=== PATIENT | male | born 1995 | race Caucasian/White ===

== ENCOUNTER → 2019-07-04 11:51 | Outpatient (BNVA) | payer OTHER, SELFPAY | PROVIDERS: Visit Provider Nurse Practitioner | DX: M25.571 Pain in right ankle and joints of right foot (principal); Z98.890 Other specified postprocedural states | CPT/HCPCS: 73610 ==

== ENCOUNTER 2019-07-05 07:21 | Emergency (ER) | payer OTHER, SELFPAY ==
[2019-07-05 07:25] VITALS: BP 139/90; PULSE 59; RESP 20; TEMP 36.4; O2SAT 100; BMI 21.6
--- NOTE | 2019-07-05 07:36 | W.ED.GENADLT ---
Documented by User: PALOMO Rehman 07/05/19 10:46 HPI - General Adult General: Chief complaint: General Medical Stated complaint: nausea, vomiting Time Seen by Provider: 07/05/19 07:29 History of Present Illness: HPI narrative: Patient is a 24-year-old male comes to the ED nausea and vomiting. Nausea and vomiting started on Monday. He only feels nauseous and vomits after he eats. Between meals he feels fine. He states he is able to keep fluids down and drinks plenty of water. Patient did state he is under some stress recently and thinks that it could possibly be causing the symptoms. He's recently his grandpa and his girlfriend of 2 years broke up with him. He says this is caused him a lot of distress. Patient was seen in urgent care yesterday for ankle injury. He currently has no acute ankle complaints while here in the ED. Denies any Fever, chills,nasal congestion, sore throat, cough, chest pain, shortness of breath, abdominal pain, diarrhea, constipation, dysuria, hematuria, reviewed changes, numbness or tingling to extremities. Review of Systems General: Reports: 10 or more systems reviewed and unremarkable except in HPI and below PFSH ED PFSH: Social History Smoking and tobacco status: never smoked Physical Exam Narrative: EXAM NARRATIVE: Patient is a 24-year-old male who is sitting comfortably on exam bed when I entered the room. He is showing no signs of acute pain or distress. Patient is also showing no signs of acute respiratory distress. Const: COMMON NORMALS: oriented x3 HENMT: COMMON NORMALS: normocephalic HEAD & SCALP: normocephalic MOUTH: oral and palatal mucosa normal THROAT: posterior oropharynx normal and uvula midline Neck/C-Spine: COMMON NORMALS: supple GENERAL: Yes normal visual inspection Resp: COMMON NORMALS: normal respiratory effort, no retractions, no use of accessory muscles and clear to auscultation bilaterally AUSCULTATION: clear to auscultation bilaterally Cardio: COMMON NORMALS: regular rate, regular rhythm, S1 normal heart sound, S2 normal heart sound, no gallops, no clicks, no murmurs and peripheral pulses 2+ throughout RATE: regular rate RHYTHM: regular rhythm HEART SOUNDS: S1 normal and S2 normal PERIPHERAL PULSES: pulses 2+ throughout GI: COMMON NORMALS: normal to inspection, nondistended, normoactive bowel sounds, soft to palpation, non-tender and no masses PALPATION: Yes soft : COMMON NORMALS: Yes no CVA tenderness BLADDER/KIDNEY EXAM: Yes no CVA tenderness Back/Pelvis: COMMON NORMALS: no CVA tenderness Extremity: COMMON NORMALS: normal to inspection Neuro: COMMON NORMALS: oriented x3 and moves all extremities Skin: COMMON NORMALS: no rashes or lesions noted GENERAL SKIN EXAM: no rashes or lesions noted Course ED course: Patient has not vomited while here in the ED and has been able to drink water. Patient was given Zofran while here in the ED and then crackers and peanut butter. Patient states that he doesn't feel nauseous and did not vomit after eating peanut Butter and crackers. Vital Signs: Vital signs: Vital Signs Temperature 97.5 F L 07/05/19 07:25 Pulse Rate 59 L 07/05/19 07:25 Respiratory Rate 20 H 07/05/19 07:25 Blood Pressure 139/90 07/05/19 07:25 Pulse Oximetry 100 07/05/19 07:25 MDM - General Adult Lab Data: Attestation: I reviewed the patient's lab results. Labs: Lab Results 07/05/19 Range/Units 08:37 POC Glucose 88 (70-110) mg/dL Discharge Plan Discharge Patient Disposition: Home, Self-Care Clinical Impression: Nausea & vomiting Qualifiers: Vomiting type: unspecified Vomiting Intractability: non-intractable Qualified Code(s): R11.2 - Nausea with vomiting, unspecified Condition: Stable Prescriptions: New Zofran 4 mg tablet 4 mg PO DAILY PRN (Reason: nausea and vomiting) Qty: 10 RF: 0 No Action No Known Home Medications RF: 0 Discharge Orders: Discharge Order (Routine); Ordered 07/05/19 Ordered By: Shaan Tanner Discharge Diet: Regular Discharge Activity: Resume usual activity Patient Instructions: Acute Nausea and Vomiting (ED) Activity Restrictions/Additional Instructions: Follow-up with your PCP in 7 days for reevaluation. Take Zofran as prescribed to help with nausea and vomiting. Drink plenty of fluids to stay hydrated. Return to the ED for reevaluation if your symptoms worsen or you develop a fever. 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 Vital Signs: Vital signs: Vital Signs Temperature 97.5 F L 07/05/19 07:25 Pulse Rate 59 L 07/05/19 07:25 Respiratory Rate 20 H 07/05/19 07:25 Blood Pressure 139/90 07/05/19 07:25 Pulse Oximetry 100 07/05/19 07:25 MDM - General Adult Lab Data: Labs: Lab Results 07/05/19 Range/Units 08:37 POC Glucose 88 (70-110) mg/dL Discharge Plan Discharge Patient Disposition: Home, Self-Care Clinical Impression: Nausea & vomiting Qualifiers: Vomiting type: unspecified Vomiting Intractability: non-intractable Qualified Code(s): R11.2 - Nausea with vomiting, unspecified Condition: Stable Prescriptions: New Zofran 4 mg tablet 4 mg PO DAILY PRN (Reason: nausea and vomiting) Qty: 10 RF: 0 No Action No Known Home Medications RF: 0 Discharge Orders: Discharge Order (Routine); Ordered 07/05/19 Ordered By: Shaan Tanner Discharge Diet: Regular Discharge Activity: Resume usual activity Patient Instructions: Acute Nausea and Vomiting (ED) Activity Restrictions/Additional Instructions: Follow-up with your PCP in 7 days for reevaluation. Take Zofran as prescribed to help with nausea and vomiting. Drink plenty of fluids to stay hydrated. Return to the ED for reevaluation if your symptoms worsen or you develop a fever. 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
[2019-07-05] MEDS: ondansetron 4 MG Tablet PO (08:32)
[2019-07-05 08:40] LABS: Glucose Point of Care 88 mg/dL (70-110)
== END 2019-07-05 10:24 | disposition home or self-care (01) ==
PROVIDERS: Emergency Provider Physician Assistant
DX: R11.2 Nausea with vomiting, unspecified (principal)
CPT/HCPCS: 36416; 82962; 99281; 99283; Q0162

== ENCOUNTER 2019-07-08 14:16 | Outpatient (CLI) | payer OTHER, SELFPAY ==
--- NOTE | 2019-07-08 14:22 | XR_ITS ---
WS: [id number] ABDOMEN SERIES ACUTE Supine and upright views of the abdomen with AP or PA chest CLINICAL INFORMATION: vomiting x 10 days COMPARISON: None. FINDINGS: Heart: Normal cardiac silhouette. Lungs: Lungs are clear. No consolidation or pleural fluid. Bowel gas pattern: Normal. Free air: None. Abnormal calcifications: None. Bones: Normal. XR/XR acute abdomen series [id number] IMPRESSION: 1. Normal chest. 2. Normal bowel gas pattern..
== END 2019-07-08 14:17 | disposition home or self-care (01) ==
LOC: RADWPI 14:18
PROVIDERS: PCP Family Medicine; Visit Provider Family Medicine
DX: R11.10 Vomiting, unspecified (principal)
CPT/HCPCS: 74022

== ENCOUNTER 2021-04-27 18:59 | Outpatient (CLI) | payer SELFPAY ==
--- NOTE | 2021-04-27 19:12 | XRR_ITS ---
PROCEDURE INFORMATION: Exam: XR Right Foot Exam date and time: 04/27/2021 7:12 PM Age: 26 years old Clinical indication: Pain; Foot; Right; Prior surgery; Surgery date: 6+ months; Surgery type: RT ankle; Patient HX: Stepped in hole; Additional info: Pain after injury TECHNIQUE: Imaging protocol: XR Right foot. Views: 3 or more views. COMPARISON: No relevant prior studies available. FINDINGS: Bones/joints: No acute fracture. Postsurgical findings seen in the distal tibia and fibula. Soft tissues: Normal. XR/XR foot RT min 3V* [id number] IMPRESSION: No acute findings.
--- NOTE | 2021-04-27 19:12 | XRR_ITS ---
PROCEDURE INFORMATION: Exam: XR Right Ankle Exam date and time: 04/27/2021 7:12 PM Age: 26 years old Clinical indication: Pain; Right; Prior surgery; Surgery date: 6+ months; Surgery type: RT. Ankle; Patient HX: Twisted; Additional info: Pain after injury TECHNIQUE: Imaging protocol: XR Right ankle. Views: 3 or more views. COMPARISON: No relevant prior studies available. FINDINGS: Bones/joints: Normal. Soft tissues: Normal. XR/XR ankle RT min 3V* [id number] IMPRESSION: No acute findings.
== END 2021-04-27 19:00 | disposition home or self-care (01) ==
PROVIDERS: Visit Provider Family Medicine
DX: M25.571 Pain in right ankle and joints of right foot (principal)
CPT/HCPCS: 73610; 73630

== ENCOUNTER → 2021-12-28 13:19 | Outpatient (BNVA) | payer SELFPAY | PROVIDERS: Visit Provider Registered Nurse Neonatal Intensive Care | DX: Z20.822 Contact with and (suspected) exposure to COVID-19 (principal) | CPT/HCPCS: 87426 ==

== ENCOUNTER 2022-12-07 15:05 | Emergency (ER) | payer BC, SELFPAY ==
[2022-12-07 15:08] VITALS: BP 107/67; PULSE 53; RESP 16; TEMP 36.6; O2SAT 100
--- NOTE | 2022-12-07 15:31 | ED_ITS ---
HPI - Abdominal Pain General: Chief Complaint: Nausea/Vomiting/Diarrhea Stated Complaint: n/v/d, fever Time Seen by Provider: 12/07/22 15:14 History of Present Illness: Patient is a 27-year-old male comes to the ED with abdominal pain nausea/vomiting and diarrhea. Symptoms started approximately 3 days ago. He rates his abdominal pain is mild to moderate and describes it as a cramping pain is located on the left side of the abdomen. He states that he gets nauseous and vomits about 3 or 4 times a day and is usually after he eats something. He has had about 2-3 episodes of diarrhea a day. Yesterday he was vomiting and there is a little bit of red blood in it. Denies any episodes of emesis today but endorses feeling nauseous. He went and saw all the urgent care and they referred patient here to the ED for further evaluation due to bloody emesis and abdominal pain. Last night patient endorses having chills and subjective fever. Associated Symptoms: Reports chills, diarrhea, fever(s) (Subjective fever), nausea and vomiting; Denies constipation, dysuria, hematochezia and hematuria Review of Systems Const: Reports: fever(s) (Subjective fever) and chills; Denies: fatigue Eyes: Denies: change in vision or eye discomfort ENMT: Denies: throat pain, odynophagia, nasal discharge or nasal congestion Card: Denies: chest pain, palpitations, edema, swelling of feet/ankles, dyspnea on exertion or orthopnea Resp: Denies: dyspnea, productive cough or non-productive cough GI: Reports: abdominal pain, nausea, vomiting and diarrhea; Denies: constipation or hematochezia : Denies: flank pain, difficulty urinating, dysuria or hematuria Musc: Denies: neck pain, back pain or extremity swelling Skin/Breast: Denies: rash or new lesions Neuro: Denies: headache(s), numbness in extremities or weakness in extremities PFS ED PFSH: Medical History (Updated 12/07/22 @ 16:50 by PALOMO Rehman) No pertinent family history Surgical History (Updated 12/07/22 @ 15:35 by PALOMO Rehman) No pertinent past surgical history Social History Smoking and tobacco status: current every day smoker (chew) smokeless tobacco Physical Exam Const: COMMON NORMALS: no acute distress, patient oriented x3, healthy appearing and alert HENMT: COMMON NORMALS: normocephalic HEAD & SCALP: normocephalic MOUTH: Normal oral and palatal mucosa present THROAT: posterior oropharynx normal and uvula midline Neck/C-Spine: COMMON NORMALS: supple GENERAL: Yes normal visual inspection Resp: COMMON NORMALS: normal respiratory effort, No retractions, No use of accessory muscles and clear to auscultation bilaterally AUSCULTATION: clear to auscultation bilaterally Cardio: COMMON NORMALS: regular rate, regular rhythm, S1 normal heart sound present, S2 normal heart sound present, No gallops present (Cardio), No clicks present (Cardio), No murmurs present (Cardio) and Peripheral pulses 2+ t hroughout RATE: regular rate RHYTHM: regular rhythm HEART SOUNDS: S1 normal heart sound present and S2 normal heart sound present PERIPHERAL PULSES: Peripheral pulses 2+ throughout GI: COMMON NORMALS: Normal to inspection, nondistended, normoactive bowel sounds present, Soft to palpation and no masses PALPATION: Yes Soft to palpation and Yes Tenderness to palpation present (GI) Details: LLQ and LUQ : COMMON NORMALS: Yes no CVA tenderness BLADDER/KIDNEY EXAM: Yes no CVA tenderness Back/Pelvis: COMMON NORMALS: no CVA tenderness Extremity: COMMON NORMALS: normal to inspection Neuro: COMMON NORMALS: patient oriented x3 SENSORIUM/ORIENTATION: Yes alert GAIT: Yes Normal gait present Skin: GENERAL SKIN EXAM: dry skin Course Vital Signs: Vital signs: Vital Signs Temperature 97.9 F 12/07/22 15:08 Pulse Rate 53 L 12/07/22 15:08 Respiratory Rate 16 12/07/22 15:08 Blood Pressure 107/67 12/07/22 15:08 Pulse Oximetry 100 12/07/22 15:08 Oxygen Delivery Me thod Room Air 12/07/22 15:08 MDM - Abdominal Pain Medical Decision Making Patient is a 27-year-old male comes to the ED with abdominal pain nausea/vomiting and diarrhea. Symptoms started approximately 3 days ago. He rates his abdominal pain is mild to moderate and describes it as a cramping pain is located on the left side of the abdomen. He states that he gets nauseous and vomits about 3 or 4 times a day and is usually after he eats something. He has had about 2-3 episodes of diarrhea a day. Yesterday he was vomiting and there is a little bit of red blood in it. Denies any episodes of emesis today but endorses feeling nauseous. He went and saw all the urgent care and they referred patient here to the ED for further evaluation due to bloody emesis and abdominal pain. Last night patient endorses having chills and subjective fever. Vitals are stable. Patient appears nontoxic and in no acute distress or pain. Patient has some generalized left-sided abdominal tenderness. Rest of exam is benign. CBC, CMP and lipase were all unremarkable. Patient is refusing an IV. I went in and talked with patient about not having an IV limits further evaluation such as a CT of abdomen with contrast and I cannot give him IV fluids and Zofran to help with his symptoms. Patient understood and still refused the IV. Patient did take p.o. Zofran and was able to tolerate p.o. fluids after Zofran. I told patient that he is not getting a full evaluation if I cannot get IV outpatient and I will not be able to do a CT of abdomen with contrast as needed for further evaluation. Patient still refused IV. Patient aware of risk of going home AMA. Patient was signed out AMA and discharged home with a prescription for Zofran. Patient likely has viral gastroenteritis. I told him to return to the ED immediately if he is having any worsening symptoms. Patient understood and agreed with plan. Lab Data I reviewed the patient's lab results. 12/07/22 15:32 12/07/22 15:32 Labs/Radiology: Laboratory Results WBC 5.2 10^3/uL (4.0-10.0) 12/07/22 15:32 RBC 5.08 10^6/uL (4.1-5.3) 12/07/22 15:32 Hgb 15.0 g/dL (11.7-16.6) 12/07/22 15:32 Hct 46.0 % (42.0-52.0) 12/07/22 15:32 MCV 90.6 fl (80-94) 12/07/22 15: MCH 29.5 pg (28.0-34.0) 12/07/22 15:32 MCHC 32.6 g/dL (30.0-36.0) 12/07/22 15:32 RDW 11.8 % (12.1-15.1) L 12/07/22 15:32 Plt Count 230 10^3/cmm (130-400) 12/07/22 15:32 MPV 9.8 fL (7.4-10.4) 12/07/22 15:32 Neut % (Auto) 46.5 % 12/07/22 15:32 Lymph % (Auto) 40.2 % 12/07/22 15:32 [place] % (Auto) 11.0 % 12/07/22 15:32 Eos % (Auto) 1.9 % 12/07/22 15:32 Baso % (Auto) 0.2 % 12/07/22 15:32 Neut # (Auto) 2.41 10^3/uL (1.8-7.7) 12/07/22 15:32 Lymph # (Auto) 2.1 10^3/uL (0.8-4.8) 12/07/22 15:32 [place] # (Auto) 0.6 10^3/uL (0.2-0.9) 12/07/22 15:32 Eos # (Auto) 0.1 10^3/uL (0.0-0.8) 12/07/22 15:32 Baso # (Auto) 0.0 10^3/uL (0.0-0.1) 12/07/22 15:32 Nucleated RBC % (auto) 0 % 12/07/22 15:32 Nucleated RBCs # 0.0 /100WBC 12/07/22 15:32 Sodium 142 mmol/L (136-145) 12/07/22 15:32 Potassium 4.4 mmol/L (3.5-5.1) 12/07/22 15:32 Chloride 105 mmol/L (98-107) 12/07/22 15:32 Carbon Dioxide 29 mmol/L (22-29) 12/07/22 15:32 Anion Gap 12.4 (5-19) 12/07/22 15:32 BUN 11 mg/dL (6-20) 12/07/22 15:32 Creatinine 0.9 mg/dL (0.7-1.2) 12/07/22 15:32 GFR Calculation 102.0 mL/min (90-130) 12/07/22 15:32 Glucose 89 mg/dL (65-115) 12/07/22 15:32 Calculated Osmolality 293 mOsm/kg (285-295) 12/07/22 15:32 Calcium 9.4 mg/dL (8.5-10.5) 12/07/22 15:32 Total Bilirubin 0.7 mg/dL (0.15-1.2) 12/07/22 15:32 AST 15 U/L (0-40) 12/07/22 15:32 ALT 17 U/L (0-41) 12/07/22 15:32 Alkaline Phosphatase 51 U/L (40-130) 12/07/22 15:32 Total Protein 7.2 g/dL (6.6-8.7) 12/07/22 15:32 Albumin 4.9 g/dL (3.5-5.2) 12/07/22 15:32 Globulin 2.3 g/dL (1.3-4.6) 12/07/22 15:32 Lipase 17 U/L (13-60) 12/07/22 15:32 Discharge Plan Discharge Patient Disposition: Left Against Medical Advice Clinical Impression: Viral gastroenteritis Condition: Stable Prescriptions: New ondansetron 4 mg tablet,disintegrating 4 mg PO Q8H PRN (Reason: nausea and vomiting) Qty: 15 0RF Discharge Diet: Advance as tolerated and Clear Liquid Discharge Activity: Increase activity as tolerated Patient Instructions: Gastroenteritis (ED) Activity Restrictions/Additional Instructions: Follow-up with medical provider as directed. Clear liquid diet for the next 24 hours and slowly advance diet as tolerated. Take medications as prescribed. Return to the ER or your medical provider if condition worsens. Please read and understand discharge instructions. Thank you for choosing [facility] for your healthcare needs today. Please realize this is an emergency room and that we are providing you with a medical screening exam and this may not be complete and all inclusive of all the testing and or work up that you may need to determine your ailment or severity of your illness. It is very important that you follow up as instructed or that you return to the Emergency Department should you have concerns or if your condition changes or worsens in any way. 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
[2022-12-07 15:41] LABS: Basophils % 0.2 %; Eosinophils # 0.1 10^3/uL (0.0-0.8); Eosinophils % 1.9 %; Lymphocytes # 2.1 10^3/uL (0.8-4.8); Lymphocytes % 40.2 %; Mean Corpuscular HGB Conc 32.6 g/dL (30.0-36.0); Mean Corpuscular Hemoglobin 29.5 pg (28.0-34.0); Mean Corpuscular Volume 90.6 fl (80-94); Mean Platelet Volume 9.8 fL (7.4-10.4); Monocytes # 0.6 10^3/uL (0.2-0.9); Neutrophils # 2.41 10^3/uL (1.8-7.7); Neutrophils % 46.5 %; Nucleated Red Blood Cells % 0 %; Platelet Count 230 10^3/cmm (130-400); Red Blood Count 5.08 10^6/uL (4.1-5.3); Red Cell Distribution Width 11.8 % (12.1-15.1); White Blood Count 5.2 10^3/uL (4.0-10.0)
[2022-12-07 16:05] LABS: Alanine Aminotransferase 17 U/L (0-41); Albumin Level 4.9 g/dL (3.5-5.2); Alkaline Phosphatase 51 U/L (40-130); Anion Gap 12.4 (5-19); Aspartate Amino Transferase 15 U/L (0-40); Blood Urea Nitrogen 11 mg/dL (6-20); Calcium 9.4 mg/dL (8.5-10.5); Carbon Dioxide 29 mmol/L (22-29); Chloride 105 mmol/L (98-107); Globulin 2.3 g/dL (1.3-4.6); Glucose 89 mg/dL (65-115); Lipase 17 U/L (13-60); Osmolality Calculated 293 mOsm/kg (285-295); Potassium 4.4 mmol/L (3.5-5.1); Sodium 142 mmol/L (136-145); Total Bilirubin 0.7 mg/dL (0.15-1.2); Total Protein 7.2 g/dL (6.6-8.7)
[2022-12-07] MEDS: ondansetron 4 MG Tablet PO (16:17)
--- NOTE | 2022-12-14 12:05 | DCPLANNER ---
economic development manager called patient due to no primary care physician - no answer at this time.
== END 2022-12-07 17:17 | disposition left against medical advice (07) ==
PROVIDERS: Emergency Provider Physician Assistant
DX: A08.4 Viral intestinal infection, unspecified (principal); F17.220 Nicotine dependence, chewing tobacco, uncomplicated
CPT/HCPCS: 36415; 80053; 83690; 85025; 99283; Q0162

== ENCOUNTER 2023-01-26 13:03 | Emergency (ER) | payer BC, SELFPAY ==
--- NOTE | 2023-01-26 13:05 | US_ITS ---
WS: [id number] RIGHT UPPER QUADRANT ULTRASOUND HISTORY: ruq pain COMPARISON: None available. Liver: 13.3 cm in length. Normal size liver and echogenicity. No bile duct dilatation or mass. Portal Vein: Normal hepatopetal flow with monophasic waveform. Gallbladder: Normally distended gallbladder with no stones or wall thickening. CBD: 0.3 cm Pancreas: Normal size and echogenicity. Right kidney: 9.8 cm in length. Normal size and echogenicity. No hydronephrosis or mass. Aorta and IVC: Unremarkable abdominal aorta and IVC. No ascites. IMPRESSION: Normal RIGHT upper quadrant ultrasound.
[2023-01-26 13:06] VITALS: BP 115/71; PULSE 63; RESP 16; TEMP 36.9; O2SAT 97; BMI 19.8
[2023-01-26 13:46] LABS: Basophils % 0.2 %; Eosinophils # 0.1 10^3/uL (0.0-0.8); Hematocrit 42.5 % (37-53); Lymphocytes # 1.6 10^3/uL (0.8-4.8); Lymphocytes % 27.3 %; Mean Corpuscular HGB Conc 33.2 g/dL (30-55); Mean Corpuscular Hemoglobin 29.8 pg (27-33); Mean Corpuscular Volume 89.9 fl (82-101); Mean Platelet Volume 9.6 fL (7.4-10.4); Monocytes # 0.5 10^3/uL (0.2-0.9); Monocytes % 7.7 %; Neutrophils # 3.79 10^3/uL (1.8-7.7); Neutrophils % 63.5 %; Nucleated Red Blood Cells % 0 %; Platelet Count 234 10^3/cmm (157-399); Red Blood Count 4.73 10^6/uL (3.85-5.65); Red Cell Distribution Width 11.9 % (12.1-15.1); White Blood Count 5.97 10^3/uL (3.29-11.43)
[2023-01-26 14:10] LABS: Alanine Aminotransferase 17 U/L (0-41); Albumin Level 4.9 g/dL (3.5-5.2); Alkaline Phosphatase 46 U/L (40-130); Aspartate Amino Transferase 18 U/L (0-40); Blood Urea Nitrogen 15 mg/dL (6-20); Calcium 9.4 mg/dL (8.5-10.5); Carbon Dioxide 29 mmol/L (22-29); Chloride 101 mmol/L (98-107); Globulin 2.3 g/dL (1.3-4.6); Glomerular Filtration Rate 116.9 mL/min (90-130); Glucose 99 mg/dL (65-115); Lipase 40 U/L (13-60); Osmolality Calculated 289 mOsm/kg (285-295); Sodium 139 mmol/L (136-145); Total Bilirubin 0.6 mg/dL (0.15-1.2); Total Protein 7.2 g/dL (6.6-8.7)
[2023-01-26 14:37] LABS: Anion Gap 13.6 (5-19); Potassium 4.6 mmol/L (3.5-5.1)
--- NOTE | 2023-01-26 14:53 | W.ED.ABDPA2 ---
HPI - Abdominal Pain General: Chief Complaint: Abdominal Pain Stated Complaint: sent by UC/abd pain Time Seen by Provider: 01/26/23 14:16 Source: patient Mode of arrival: ambulatory History of Present Illness: 27-year-old male presents emergency room complaining of right upper quadrant abdominal pain intermittent for the last 2 days worsening persistent in the right upper quadrant. No nausea or vomiting no fever sweats or chills. No dysuria urgency or frequency no hematochezia melena hematemesis. MD elicited complaint: abdominal pain Onset (ago): day(s) (2) Pain Consistency: intermittent Location: RUQ Severity: moderate Quality: cramping Radiation: RUQ Exacerbating factors: nothing Relieving factors: nothing Associated Symptoms: Denies anorexia, belching, bloating, change in bowel habits, change in stool character, chills, coffee ground emesis, constipation, GI cramping, diarrhea, dyspepsia, dysuria, excessive flatus, fever(s), heartburn, hematochezia, hematuria, hematemesis, fecal incontinence, loose stools, melena, nausea, poor appetite, syncope and vomiting Review of Systems Const: Denies: fever(s) or chills ENMT: Denies: throat pain, ear or mastoid pain, nasal discharge or nasal congestion Card: Denies: chest pain or syncope Resp: Denies: dyspnea, productive cough or non-productive cough GI: Reports: abdominal pain; Denies: nausea, vomiting, hematemesis, coffee ground emesis, heartburn, diarrhea, constipation, bloating, GI cramping, belching, excessive flatus, fecal incontinence, change in bowel habits, change in stool character, hematochezia or melena : Denies: dysuria or hematuria Skin/Breast: Denies: rash or pruritus PFSH ED PFSH: Medical History No pertinent family history Surgical History No pertinent past surgical history Social History Smoking and tobacco status: current every day smoker (chew) smokeless tobacco Physical Exam Const: GENERAL APPEARANCE: cooperative and comfortable ORIENTATION/CONSCIOUSNESS: Yes awake, Yes oriented to person, Yes oriented to place and Yes oriented to time HENMT: COMMON NORMALS: normocephalic, atraumatic and hearing grossly normal bilaterally HEAD & SCALP: normocephalic and atraumatic Resp: COMMON NORMALS: normal respiratory effort, No retractions, No use of accessory muscles and clear to auscultation bilaterally AUSCULTATION: clear to auscultation bilaterally Cardio: COMMON NORMALS: regular rate, regular rhythm and No murmurs present (Cardio) RATE: regular rate RHYTHM: regular rhythm GI: COMMON NORMALS: No hepatosplenomegaly present AUSCULTATION: Yes normoactive bowel sounds PALPATION: Yes Tenderness to palpation present (GI) Details: RUQ, No Guarding due to palpation present (GI) and Yes No hepatosplenomegaly present Extremity: COMMON NORMALS: normal to inspection, capillary refill normal, no clubbing, cyanosis or edema, no calf tenderness and no pedal edema Neuro: SENSORIUM/ORIENTATION: Yes oriented to person, Yes oriented to place and Yes oriented to time Skin: COMMON NORMALS: no rashes or lesions noted GENERAL SKIN EXAM: no rashes or lesions noted Course Vital Signs: Vital signs: Vital Signs Temperature 98.4 F 01/26/23 13:06 Pulse Rate 46 L 01/26/23 16:46 Respiratory Rate 16 01/26/23 16:46 Blood Pressure 100/61 01/26/23 16:46 Pulse Oximetry 98 01/26/23 16:46 Oxygen Delivery Me thod Room Air 01/26/23 16:46 MDM - Abdominal Pain Medical Decision Making Labs and imaging reviewed. No significant findings moderate constipation on the CT ultrasound negative no elevation of liver enzymes no leukocytosis. Discharge patient home lactulose 1 dose every 2 hours until desired results achieved follow-up as needed Medical Records I reviewed the patient's medical records. Lab Data I reviewed the patient's lab results. 01/26/23 13:27 01/26/23 13:27 Labs/Radiology: Radiology Impressions Abdomen/Pelvis CT 01/26/23 15:14 IMPRESSION: 1. Negative for acute inflammatory process in the abdomen or pelvis. 2. Mild diverticulosis without diverticulitis. Laboratory Results WBC 5.97 10^3/uL (3.29-11.43) 01/26/23 13:27 RBC 4.73 10^6/uL (3.85-5.65) 01/26/23 13:27 Hgb 14.10 g/dL (11.27-16.99) 01/26/23 13:27 Hct 42.5 % (37-53) 01/26/23 13:27 MCV 89.9 fl (82-101) 01/26/23 13:27 MCH 29.8 pg (27-33) 01/26/23 13:27 MCHC 33.2 g/dL (30-55) 01/26/23 13:27 RDW 11.9 % (12.1-15.1) L 01/26/23 13:27 Plt Count 234 10^3/cmm (157-399) 01/26/23 13:27 MPV 9.6 fL (7.4-10.4) 01/26/23 13:27 Neut % (Auto) 63.5 % 01/26/23 13:27 Lymph % (Auto) 27.3 % 01/26/23 13:27 [place] % (Auto) 7.7 % 01/26/23 13:27 Eos % (Auto) 1.0 % 01/26/23 13:27 Baso % (Auto) 0.2 % 01/26/23 13:27 Neut # (Auto) 3.79 10^3/uL (1.8-7.7) 01/26/23 13:27 Lymph # (Auto) 1.6 10^3/uL (0.8-4.8) 01/26/23 13:27 [place] # (Auto) 0.5 10^3/uL (0.2-0.9) 01/26/23 13:27 Eos # (Auto) 0.1 10^3/uL (0.0-0.8) 01/26/23 13:27 Baso # (Auto) 0.0 10^3/uL (0.0-0.1) 01/26/23 13:27 Nucleated RBC % (auto) 0 % 01/26/23 13:27 Nucleated RBCs # 0.0 /100WBC 01/26/23 13:27 Sodium 139 mmol/L (136-145) 01/26/23 13:27 Potassium 4.6 mmol/L (3.5-5.1) 01/26/23 13:27 Chloride 101 mmol/L (98-107) 01/26/23 13:27 Carbon Dioxide 29 mmol/L (22-29) 01/26/23 13:27 Anion Gap 13.6 (5-19) 01/26/23 13:27 BUN 15 mg/dL (6-20) 01/26/23 13:27 Creatinine 0.8 mg/dL (0.7-1.2) 01/26/23 13:27 GFR Calculation 116.9 mL/min (90-130) 01/26/23 13:27 Glucose 99 mg/dL (65-115) 01/26/23 13:27 Calculated Osmolality 289 mOsm/kg (285-295) 01/26/23 13:27 Calcium 9.4 mg/dL (8.5-10.5) 01/26/23 13:27 Total Bilirubin 0.6 mg/dL (0.15-1.2) 01/26/23 13:27 AST 18 U/L (0-40) 01/26/23 13:27 ALT 17 U/L (0-41) 01/26/23 13:27 Alkaline Phosphatase 46 U/L (40-130) 01/26/23 13:27 Total Protein 7.2 g/dL (6.6-8.7) 01/26/23 13:27 Albumin 4.9 g/dL (3.5-5.2) 01/26/23 13:27 Globulin 2.3 g/dL (1.3-4.6) 01/26/23 13:27 Lipase 40 U/L (13-60) 01/26/23 13:27 Urine Color Yellow (Yellow) 01/26/23 15:18 Urine Appearance Clear (CLEAR) 01/26/23 15:18 Urine pH 8 (5-7) H 01/26/23 15:18 Ur Specific [place] 1.015 (1.005-1.030) 01/26/23 15:18 Urine Protein Neg (Negative) 01/26/23 15:18 Urine Glucose (UA) Norm (Normal) 01/26/23 15:18 Urine Ketones Negative (Negative) 01/26/23 15:18 Urine Blood Neg (Negative) 01/26/23 15:18 Urine Nitrate Negative (Negative) 01/26/23 15:18 Urine Bilirubin Neg (Negative) 01/26/23 15:18 Prot Sulfosalicylic Acd Negative (Negative) 01/26/23 15:18 Urine Urobilinogen Norm mg/dL (Negative) 01/26/23 15:18 Ur Leukocyte Esterase Negative (Negative) 01/26/23 15:18 Discharge Plan Discharge Patient Disposition: Home Clinical Impression: Constipation Condition: Stable Prescriptions: New lactulose 20 gram/30 mL solution 20 g PO Q2H 1 Days Qty: 360 0RF Rx Instructions: until desired laxative effect Discharge Orders: Discharge ED (Routine); Ordered 01/26/23 Ordered By: Ed Cronin Referrals: Rashid Christian MD [Physician] - 02/01/23 2:00 pm Discharge Diet: Clear Liquid Discharge Activity: Increase activity as tolerated Patient Instructions: Constipation (ED), Opioid Safety, Pain Management Stand Alone Forms: Work/School Release Coding Level of Care Code ED Programmer Analyst [employer] It for Prerna Kamara
--- NOTE | 2023-01-26 15:08 | DCPLANNER ---
accounting manager assistant controller seen patient due to no primary care physician. Patient stated that he would like for rehabilitation case coordinator to get patient established with a provider. accounting manager assistant controller called [facility], gave clinic patients information. A follow up appointment was scheduled for Wednesday, February 01, 2023 at 2:[address] Christian at [facility]. accounting manager assistant controller informed patient of the scheduled appointment.
--- NOTE | 2023-01-26 15:14 | CTR_ITS ---
PROCEDURE INFORMATION: Exam: CT Abdomen And Pelvis Without Contrast Exam date and time: 01/26/2023 3:50 PM Age: 27 years old Clinical indication: Abdominal pain; Generalized TECHNIQUE: Imaging protocol: Computed tomography of the abdomen and pelvis without contrast. Radiation optimization: All CT scans at this facility use at least one of these dose optimization techniques: automated exposure control; mA and/or kV adjustment per patient size (includes targeted exams where dose is matched to clinical indication); or iterative reconstruction. REPORTING DATA: Count of CT and Cardiac NM exams in prior 12 months: This patient has received 0 known CTs and 0 known cardiac nuclear medicine studies in the 12 months prior to the current study. COMPARISON: CR XR acute abdomen series [id number] 07/08/2019 2:34 PM RADIATION DOSE METRICS: Total DLP (mGy-cm): 328.94 FINDINGS: Liver: Normal. No mass. Gallbladder and bile ducts: Normal. No calcified stones. No ductal dilation. Pancreas: Normal. No ductal dilation. Spleen: Normal. No splenomegaly. Adrenal glands: Normal. No mass. Kidneys and ureters: Normal. No hydronephrosis. Stomach and bowel: Mild diverticulosis without diverticulitis. Appendix: No evidence of appendicitis. Intraperitoneal space: Unremarkable. No free air. No significant fluid collection. Vasculature: Unremarkable. No abdominal aortic aneurysm. Lymph nodes: Unremarkable. No enlarged lymph nodes. Urinary bladder: Unremarkable as visualized. Reproductive: Unremarkable as visualized. Bones/joints: Unremarkable. No acute fracture. Soft tissues: Unremarkable. CT/CT abdomen pelvis wo con [id number] IMPRESSION: 1. Negative for acute inflammatory process in the abdomen or pelvis. 2. Mild diverticulosis without diverticulitis.
[2023-01-26 15:31] LABS: Add Urine Microscopic? NO; Charge for UA Resulting for Rev
[2023-01-26 15:51] LABS: Bilirubin Urine Neg (Negative); Blood Urine Neg (Negative); Glucose Urine UA Norm (Normal); Ketones Urine Negative (Negative); Leukocyte Esterase Urine Negative (Negative); Nitrate Urine Negative (Negative); Protein Urine Neg (Negative); Specific Gravity, Urine 1.015 (1.005-1.030); Sulfosalicylic Acid Urine Negative (Negative); Urine Appearance Clear (CLEAR); Urine Color Yellow (Yellow); Urobilinogen Urine Norm (Negative); pH Urine 8 (5-7)
[2023-01-26 16:46] VITALS: BP 100/61; PULSE 46; RESP 16; O2SAT 98
== END 2023-01-26 16:58 | disposition home or self-care (01) ==
PROVIDERS: Emergency Medicine; Emergency Provider Family Medicine
DX: K59.00 Constipation, unspecified (principal); K57.90 Diverticulosis of intestine, part unspecified, without perforation or abscess without bleeding; F17.220 Nicotine dependence, chewing tobacco, uncomplicated
CPT/HCPCS: 36415; 74176; 76705; 80053; 81003; 83690; 85025; 99284

== ENCOUNTER 2024-04-09 20:14 | Emergency (ER) | payer BC, SELFPAY ==
--- NOTE | 2024-04-09 20:16 | XRR_ITS ---
PROCEDURE INFORMATION: Exam: XR Right Wrist Exam date and time: 04/09/2024 8:20 PM Age: 28 years old Clinical indication: Pain; Wrist; Right; Additional info: Injury pain TECHNIQUE: Imaging protocol: Radiologic exam of the right wrist. Views: 3 or more views. COMPARISON: No relevant prior studies available. FINDINGS: Bones/joints: Distal medial radial 5.5 mm sclerotic bony lesion likely reflects a benign bone island. Soft tissues: Normal. XR/XR wrist RT min 3V* [id number] IMPRESSION: Negative for fracture or dislocation
[2024-04-09 20:18] VITALS: BP 111/61; PULSE 73; RESP 16; TEMP 36.6; O2SAT 98; BMI 20.3
--- NOTE | 2024-04-09 20:30 | W.ED.EXTPRO ---
HPI - Extremity Problem General: Chief complaint: Extremity Injury, Upper Stated complaint: right wrist injury Time Seen by Provider: 04/09/24 20:21 Source: patient Mode of arrival: ambulatory Limitations: no limitations History of Present Illness: Patient is a 28-year-old male presents the emergency department with right wrist pain beginning 2 hours prior to arrival. States that he twisted it when he was pivoting around the post while going up stairs. This was atraumatic. No history of surgeries or fractures to that wrist. He has never had this happen in the past. Has not taken anything for pain or tried anything [id number]. Pain reported to be diffusely around the right wrist with some radiation proximally. Reporting limitation of range of motion secondary to pain. MD Complaint: joint pain Onset (ago): hour(s) Location: right and upper extremity (Wrist) Radiation: proximal Exacerbating factors: range of motion Associated symptoms: Deny chest pain, fever(s) or rash Related Data Previous Rx's Medication Instructions Recorded ondansetron 8 mg disintegrating 8 mg PO Q8H PRN nausea and 04/25/23 tablet vomiting #10 tabs cyclobenzaprine 10 mg tablet 10 mg PO TID #10 tabs 04/09/24 Allergies Allergy/AdvReac Type Severity Reaction Status Date / Time No Known Allergies Allergy Verified 04/25/23 14:21 Review of Systems General: Reports: 10 or more systems reviewed and unremarkable except in HPI and below Const: Denies: fever(s) or chills Card: Denies: chest pain Resp: Denies: dyspnea or productive cough GI: Denies: abdominal pain, nausea, vomiting or diarrhea : Denies: flank pain Musc: Reports: joint pain (Right wrist) and limited range of motion; Denies: neck pain, back pain, extremity pain, extremity swelling, joint swelling, joint redness, joint warmth or muscle weakness Skin/Breast: Denies: rash Neuro: Denies: headache(s), numbness in extremities or weakness in extremities PFS ED PFSH: Medical History No pertinent family history Surgical History H/O toe surgery History of surgery on lower extremity No pertinent past surgical history Family History Grandmother Cancer Diabetes Hypertension Father Clotting disorder Hypertension Grandfather Clotting disorder Diabetes Brother Clotting disorder Social History Smoking and tobacco/nicotine status: former use of tobacco/nicotine (chew) Alcohol intake: former Substance/Drug Use: former Date of last use: 1 year Household members: spouse, family and children Housing: House Physical Exam Const: COMMON NORMALS: no acute distress, patient oriented x3, no limitations, healthy appearing, alert and well nourished HENMT: COMMON NORMALS: normocephalic and atraumatic HEAD & SCALP: normocephalic and atraumatic Neck/C-Spine: COMMON NORMALS: full ROM, supple and no meningeal signs Resp: COMMON NORMALS: normal respiratory effort, No use of accessory muscles and clear to auscultation bilaterally AUSCULTATION: clear to auscultation bilaterally Cardio: COMMON NORMALS: regular rate and regular rhythm RATE: regular rate RHYTHM: regular rhythm Extremity: COMMON NORMALS: full ROM, capillary refill normal, no joint enlargement and no clubbing, cyanosis or edema NARRATIVE EXTREMITY EXAM: Endorsing severe tenderness to very light palpation of the right wrist joint. No obvious deformity, signs of trauma, bruising, or redness. No swelling. Distal neurovascular status intact. Pain with active range of motion in all planes of the right wrist. Neuro: COMMON NORMALS: patient oriented x3, moves all extremities, no focal motor deficits and no sensory deficits noted SENSORIUM/ORIENTATION: Yes alert MENINGEAL SIGNS: Yes no meningeal signs Skin: COMMON NORMALS: no rashes or lesions noted GENERAL SKIN EXAM: no rashes or lesions noted Course Vital Signs: Vital signs: Vital Signs Temperature 97.9 F 04/09/24 20:18 Pulse Rate 73 04/09/24 20:18 Respiratory Rate 16 04/09/24 20:18 Blood Pressure 111/61 04/09/24 20:18 Pulse Oximetry 98 04/09/24 20:18 Oxygen Delivery Me thod Room Air 04/09/24 20:18 MDM - Extremity (Nontraumatic) Medical Decision Making Patient had a traumatic right wrist pain beginning couple hours prior to arrival where he twisted awkwardly while rotating around stair post. No previous injuries to this wrist, no history of dislocations. Physical examination showed he was extremely tender with light palpation, despite there being no signs of trauma or deformity. There was no swelling. X-ray was normal. Cannot rule out that this is ligament or tendon injury so we will have him follow-up with primary care to obtain an MRI with persistence of pain. In the meantime we will treat conservatively with RICE therapy, this likely is a wrist sprain and we will try a couple of muscle relaxers to help his pain. Wrist wrapped with compression device prior to discharge. XR interpretation done by ED provider, pending radiology final review ED provider radiology interpretation(s): X-ray of right wrist not showing any acute fractures or dislocation. Discharge Plan Discharge Patient Disposition: Home Clinical Impression: Right wrist sprain Qualifiers: Encounter type: initial encounter Qualified Code(s): S63.501A - Unspecified sprain of right wrist, initial encounter Condition: Stable Prescriptions: New cyclobenzaprine 10 mg tablet 10 mg PO TID Qty: 10 0RF No Action ondansetron 8 mg tablet,disintegrating 8 mg PO Q8H PRN (Reason: nausea and vomiting) Qty: 10 0RF Discharge Orders: Discharge ED (Routine); Ordered 04/09/24 Ordered By: Nikolas Stern Referrals: Rashid Christian MD [Primary Care Provider] - Patient Instructions: Wrist Sprain (ED) Activity Restrictions/Additional Instructions: Rest, ice, compression, and elevation of the right wrist. Muscle relaxers as prescribed. Alternate Tylenol ibuprofen for any pain. Please follow-up with your primary care provider with any persistence of pain as you may require an MRI. Work note provided. Stand Alone Forms: Work/School Release Coding Level of Care Code ED Consulting Services Project Manager for Prerna Kamara
[2024-04-09 21:03] VITALS: BP 132/84; PULSE 87; O2SAT 96
== END 2024-04-09 21:04 | disposition home or self-care (01) ==
PROVIDERS: Emergency Provider Physician Assistant; PCP Family Medicine
DX: S63.501A Unspecified sprain of right wrist, initial encounter (principal); X58.XXXA Exposure to other specified factors, initial encounter; Z87.891 Personal history of nicotine dependence
CPT/HCPCS: 73110; 99283

== ENCOUNTER 2024-05-17 15:43 | Outpatient (CLI) | payer BC, SELFPAY ==
--- NOTE | 2024-05-17 16:00 | MRR_ITS ---
PROCEDURE INFORMATION: Exam: MR Right Upper Extremity Joint Without Contrast; Wrist Exam date and time: 05/17/2024 4:25 PM Age: 29 years old Clinical indication: Right; Patient HX: -twisted wrist when pivoting around a post while going up the stairs. Was chassing child up stairs. Got hand stuck between metaland wooden post as he wrapped around the corner. -heard a popping sound. Then developed pain; Additional info: Ligamentous tear TECHNIQUE: Imaging protocol: Magnetic resonance imaging of the right upper extremity without contrast. Exam focused on the wrist. COMPARISON: CR (UP EXM, ) 04/09/2024 8:20 PM FINDINGS: Bones/joints: No evidence of fracture or malalignment. Bone island noted in the medial aspect of the distal radial metaphysis. Mild triscaphe degeneration. Moderate pisotriquetral degeneration. No evidence of osteonecrosis or inflammatory arthropathy. Trace-small distal radioulnar joint effusion. Trace radiocarpal effusion. Scapholunate ligament: Grossly intact. Lunotriquetral ligament: Grossly intact. Triangular fibrocartilage complex: Grossly intact. Flexor compartment tendons: Intact. Extensor compartment tendons: Intact. Trace tenosynovitis of extensor II. Soft tissues: No evidence of fluid collection or hematoma. MR/MR wrist RT wo con* [id number] IMPRESSION: 1. No evidence of ligamentous or tendon disruption. If there is ongoing clinical concern, consider correlation with follow-up outpatient MR arthrography. 2. Moderate pisotriquetral degeneration.
== END 2024-05-17 15:44 | disposition home or self-care (01) ==
LOC: RAD 15:43
PROVIDERS: PCP Family Medicine; Visit Provider Family Medicine
DX: M25.831 Other specified joint disorders, right wrist (principal); M25.531 Pain in right wrist
CPT/HCPCS: 73221

== ENCOUNTER → 2024-06-06 14:57 | Outpatient (BNVA) | payer BC, SELFPAY | PROVIDERS: PCP Family Medicine; Visit Provider Physician Assistant | DX: S63.501A Unspecified sprain of right wrist, initial encounter; X58.XXXA Exposure to other specified factors, initial encounter | CPT/HCPCS: 73110 ==